=== PATIENT | female | born 1975 | race Caucasian/White ===

== ENCOUNTER 2017-07-15 13:37 | Emergency (ER) | payer BC ==
[2017-07-15] MEDS ORDERED: ONDANSETRON 4 MG/2 ML VIAL ONE (14:18)
[2017-07-15 14:39] LABS: Absolute Lymphocytes (CBC) 3.2 K/uL (0.7-4.9); Absolute Monocytes 0.7 K/uL (0.1-1.3); Absolute Neutrophil 7.1 K/uL (1.8-8.0); Basophils % 0.5 % (0-1.3); Eosinophils % 2.6 % (0-4.4); Hematocrit 39.3 % (36.0-45.0); Lymphocytes % 27.9 % (15.3-44.8); MCH 27.6 pg (27.0-35.0); MCV 83.6 fL (80-100); MPV 9.3 fL (7.6-11.3); Monocytes % 6.6 % (3.3-12.3); RBC Red Blood Cell Count 4.71 M/uL (3.86-4.86)
--- NOTE | 2017-07-15 14:42 | RAD REPORT ---
EXAM DESCRIPTION: CT - Head Brain Wo Cont - 07/15/2017 2:29 pm CLINICAL HISTORY: CVA COMPARISON: 11/20/2011, 09/19/2009 TECHNIQUE: All CT scans are performed using dose optimization technique as appropriate and may inclu de automated exposure control or mA/KV adjustment according to patient size. FINDINGS: No intracranial hemorrhage, hydrocephalus or extra-axial fluid collection.No areas of brai n edema or evidence of midline shift. The paranasal sinuses and mastoids are clear. The calvarium is intact. IMPRESSION: No acute intracranial abnormality.
[2017-07-15 14:43] LABS: Protime INR 1.02
[2017-07-15 14:47] LABS: Bicarbonate 26 mEq/L (21-31); Glucose Level 103 mg/dL (65-120); Potassium 3.6 mEq/L (3.6-5.0); Sodium Level 136 mEq/L (135-145)
[2017-07-15 14:48] LABS: BUN Blood Urea Nitrogen 10 mg/dL (6-20); Magnesium 1.7 mg/dL (1.8-2.5)
--- NOTE | 2017-07-15 15:11 | RAD REPORT ---
EXAM DESCRIPTION: MRI - Brain Wo Cont - 07/15/2017 3:00 pm CLINICAL HISTORY: CVA COMPARISON: 07/15/2017 CT head TECHNIQUE: Multi-sequence, multiplanar MR imaging of the brain was performed without contrast. FINDINGS: No intracranial hemorrhage, hydrocephalus or extra-axial fluid collections. No edema or sh ift of midline structures. No findings to suspect brain mass. DWI is negative for acute CVA. Midline structures are normally formed. Mastoid air cells and paranasal sinuses are clear. IMPRESSION: No acute or concerning intracranial abnormalities.
[2017-07-15] MEDS ORDERED: MAGNESIUM SULFATE 1 gm IVPB 1 GM/100 ML BAG IV ONE (15:21)
[2017-07-15 16:00] LABS: Urine Blood NEGATIVE (NEG); Urine Glucose NEGATIVE (NEG); Urine Protein NEGATIVE (NEG)
[2017-07-15 16:06] LABS: Urine Bacteria 20-50 /HPF (<20); Urine RBC NONE SEEN /HPF (NONE SEEN)
[2017-07-15 16:07] LABS: Urine Culture Reflex Order REFLEXED
--- NOTE | 2017-07-15 16:09 | EDPHYS ---
Physician Documentation [facility] Name: Rosalina Nielsen Age: 42 yrs Sex: Female : 1975 Arrival Date: 07/15/2017 Time: 13:38 Bed 19 Private MD: Blair Enriquez S ED Physician Joseph Nova HPI: 07/15 14:44 This 42 yrs old Female presents to ER via Ambulatory with complaints of rn Numbness Of Arm, Chest Tightness, Headache. 14:44 This 42 yrs old Female presents to ER via Ambulatory with complaints of rn Numbness Of Arm, headache. 14:44 The patient's problem is reported as paresthesias, in right upper extremity, in right rn lower extremity, weakness, in the right lower extremity. Onset: The symptoms/episode began/occurred this morning. The symptoms are alleviated by nothing. The symptoms are aggravated by nothing. Severity of symptoms: At their worst the symptoms were mild in the emergency department the symptoms are unchanged. The patient has experienced a previous episode. Reports mild headache, onset of numbness/tingling of RUE and right foot, onset at 0400, reports mild weakness to right leg. 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 . 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 - Social history:: Smoking status: Patient uses tobacco products, denies chronic smoking, but will smoke occasionally. - Family history:: not pertinent. - Hospitalizations: : No recent hospitalization is reported. ROS: 14:44 Constitutional: Negative for fever, chills, and weight loss, Eyes: Negative for injury, rn pain, redness, and discharge, Neck: Negative for injury, pain, and swelling, Cardiovascular: Negative for chest pain, palpitations, and edema, Respiratory: Negative for shortness of breath, cough, wheezing, and pleuritic chest pain, Abdomen/GI: Negative for abdominal pain, nausea, vomiting, diarrhea, and constipation, Back: Negative for injury and pain, MS/Extremity: Negative for injury and deformity, Skin: Negative for injury, rash, and discoloration, Neuro: Negative for seizure Exam: 14:44 Constitutional: This is a well developed, well nourished patient who is awake, alert, rn and in no acute distress. Head/Face: Normocephalic, atraumatic. Eyes: Pupils equal round and reactive to light, extra-ocular motions intact. Lids and lashes normal. Conjunctiva and sclera are non-icteric and not injected. Cornea within normal limits. Periorbital areas with no swelling, redness, or edema. Neck: Trachea midline, no thyromegaly or masses palpated, and no cervical lymphadenopathy. Supple, full range of motion without nuchal rigidity, or vertebral point tenderness. No Meningismus. Cardiovascular: Regular rate and rhythm with a normal S1 and S2. No gallops, murmurs, or rubs. Normal PMI, no JVD. No pulse deficits. Respiratory: Lungs have equal breath sounds bilaterally, clear to auscultation and percussion. No rales, rhonchi or wheezes noted. No increased work of breathing, no retractions or nasal flaring. Abdomen/GI: Soft, non-tender, with normal bowel sounds. No distension or tympany. No guarding or rebound. No evidence of tenderness throughout. MS/ Extremity: Pulses equal, no cyanosis. Neurovascular intact. Equal circumference. Neuro: Awake and alert, GCS 15, oriented to person, place, time, and situation. Cranial nerves II-XII grossly intact. Motor strength 5/5 in all extremities without drift, + very mild RLE weakness. decreased sensation RUE/RLE. Cerebellar exam normal. Normal gait. Vital Signs: 13:44 BP 146 / 97; Pulse 61; Resp 17; Temp 98.7(O); Pulse Ox 100% on R/A; Weight 89.81 kg tw2 (R); Height 5 ft. 1 in. (154.94 cm) (R); Pain 6/10; 14:25 BP 138 / 88; Pulse 62; Pulse Ox 99% on R/A; ch 15:16 BP 132 / 80; Pulse 70; Resp 16; Temp 98.5; Pulse Ox 100% on R/A; Pain 6/10; ch 16:22 BP 128 / 89; Pulse 65; Resp 14; Temp 97.8; Pulse Ox 99% on R/A; Pain 5/10; ch 13:44 Body Mass Index 37.41 (89.81 kg, 154.94 cm) tw2 MDM: 13:49 Patient medically screened. rn 14:00 ED course: Onset 0400 today.. rn 16:06 Differential diagnosis: CVA, TIA, metabolic disorder, complicated migraine. Data rn reviewed: vital signs, nurses notes, lab test result(s), EKG, radiologic studies, CT scan, MRI, and as a result, I will discharge patient. Counseling: I had a detailed discussion with the patient and/or guardian regarding: the historical points, exam findings, and any diagnostic results supporting the discharge/admit diagnosis, lab results, radiology results, the need for outpatient follow up, to return to the emergency department if symptoms worsen or persist or if there are any questions or concerns that arise at home. Response to treatment: the patient's symptoms have mildly improved after treatment, and as a result, I will discharge patient. Special discussion: I discussed with the patient/guardian in detail that at this point there is no indication for admission to the hospital. It is understood, however, that if the symptoms persist or worsen the patient needs to return immediately for re-evaluation. ED course: CT head and MRI brain negative for acute findings, most likely complicated migraine given her hx of complicated migraines and neurological problems NOS, will dc home to f/u with her neurologist Dr. alfaro. . 07/15 14:00 Order name: Magnesium; Complete Time: 15:07/15 14:00 Order name: Urine Microscopic Only rn 07/15 14:00 Order name: Basic Metabolic Panel; Complete Time: 15: rn 07/15 14:00 Order name: CBC with Diff; Complete Time: 15: rn 07/15 14:00 Order name: Protime (+inr); Complete Time: 15:17 rn 07/15 14:00 Order name: Ptt, Activated; Complete Time: 15:17 rn 07/15 14:00 Order name: CT Head Brain wo Cont; Complete Time: 15:17 rn 07/15 14:00 Order name: Troponin (emerg Dept Use Only); Complete Time: 15:17 rn 07/15 14:00 Order name: EKG; Complete Time: 14:01 rn 07/15 14:00 Order name: Brain Wo Cont MRI; Complete Time: 15:17 rn 07/15 15:41 Order name: Urine Dipstick--Ancillary (enter results) ag 07/15 15:41 Order name: Urine --Ancillary (enter results) 07/15 16:09 Order name: Urine Culture EDAR 07/15 14:00 Order name: Urine Test (obtain specimen); Complete Time: 15:14 rn 07/15 14:00 Order name: Cardiac monitoring; Complete Time: 15:15 rn 07/15 14:00 Order name: EKG - Nurse/Tech; Complete Time: 15:48 rn 07/15 14:00 Order name: IV Saline Lock; Complete Time: 14:22 rn 07/15 14:00 Order name: Labs collected and sent; Complete Time: 15:15 rn 07/15 14:00 Order name: NPO; Complete Time: 15:15 rn 07/15 14:00 Order name: O2 Per Protocol; Complete Time: 15:15 rn 07/15 14:00 Order name: O2 Sat Monitoring; Complete Time: 15:15 rn 07/15 14:00 Order name: Urine Dipstick-Ancillary (obtain specimen); Complete Time: 15:15 rn Administered Medications: 15:20 Drug: Magnesium Sulfate 1 grams Route: IVPB; Infused Over: 1 hrs; Site: left forearm; 15:48 Follow up: IV Status: Completed infusion Disposition: 07/15/17 16:08 Discharged to Home. Impression: Paresthesia of skin, Migraine, unspecified. - Condition is Stable. - Discharge Instructions: Paresthesia. - Work release form, Medication Reconciliation Form, Thank You Letter, Antibiotic Education, Prescription Opioid Use form. - Follow up: Chris Alfaro MD; When: As needed; Reason: Recheck today's complaints, Re-evaluation by your physician. - Problem is new. - Symptoms have improved. Signatures: Dispatcher [employer] EDZenaida Jean-Baptiste RN RN Marissa Nixon RN RN Joseph Nova MD MD rn Wise, Tara, RN RN tw2
--- NOTE | 2017-07-15 16:09 | ER ---
Nurse's Notes [facility] Name: Rosalina Nielsen Age: 42 yrs Sex: Female : 1975 Arrival Date: 07/15/2017 Time: 13:38 Bed 19 Private MD: Blair Enriquez S Diagnosis: Paresthesia of skin;Migraine, unspecified Presentation: 07/15 13:43 Presenting complaint: Patient states: "numbness in my right arm since 4 am this tw2 morning, and it feels like it is going into my chest, and i have been having some tightness in my chest and right foot feels like a tingling sensation". Transition of care: patient was not received from another setting of care. Onset of symptoms was July 15, 2017. Care prior to arrival: None. 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 - Social history:: Smoking status: Patient uses tobacco products, denies chronic smoking, but will smoke occasionally. - Family history:: not pertinent. - Hospitalizations: : No recent hospitalization is reported. Screenin:25 Abuse screen: Denies threats or abuse. Denies injuries from another. Nutritional ch screening: No deficits noted. Tuberculosis screening: No symptoms or risk factors identified. Fall Risk None identified. Assessment: 14:22 General: Appears in no apparent distress. uncomfortable, Behavior is calm, cooperative, ch appropriate for age. Pain: Complains of pain in head Pain does not radiate. Pain currently is 4 out of 10 on a pain scale. Pain began gradually. Neuro: Level of Consciousness is awake, alert, obeys commands, Oriented to person, place, time, situation, Founder And Ceo are equal bilaterally Moves all extremities. Full function Gait is steady, Speech is normal, Facial symmetry appears normal, Facial symmetry: tongue is midline, Pupils are PERRLA, Reports headache numbness paresthesias in right arm, right bess, anterior aspect of right ankle and dorsum of right foot. 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 Respiratory: Airway is patent Respiratory effort is even, unlabored, Breath sounds are clear bilaterally. GI: Reports nausea. : No signs and/or symptoms were reported regarding the genitourinary system. Derm: Skin is intact, Skin is pink, warm \\T\\ dry. 15:16 Reassessment: Patient appears in no apparent distress at this time. Patient and/or ch family updated on plan of care and expected duration. Pain level reassessed. Patient is alert, oriented x 3, equal unlabored respirations, skin warm/dry/pink. 16:22 Reassessment: Patient appears in no apparent distress at this time. Patient and/or ch family updated on plan of care and expected duration. Pain level reassessed. Patient is alert, oriented x 3, equal unlabored respirations, skin warm/dry/pink. Patient states feeling better. Patient states symptoms have improved. Vital Signs: 13:44 BP 146 / 97; Pulse 61; Resp 17; Temp 98.7(O); Pulse Ox 100% on R/A; Weight 89.81 kg tw2 (R); Height 5 ft. 1 in. (154.94 cm) (R); Pain 6/10; 14:25 BP 138 / 88; Pulse 62; Pulse Ox 99% on R/A; ch 15:16 BP 132 / 80; Pulse 70; Resp 16; Temp 98.5; Pulse Ox 100% on R/A; Pain 6/10; ch 16:22 BP 128 / 89; Pulse 65; Resp 14; Temp 97.8; Pulse Ox 99% on R/A; Pain 5/10; ch 13:44 Body Mass Index 37.41 (89.81 kg, 154.94 cm) tw2 ED Course: 13:38 Patient arrived in ED. as 13:39 Blair Enriquez MD is Private Physician. as 13:44 Triage completed. tw2 13:45 Arm band placed on. tw2 13:47 Joseph Nova MD is Attending Physician. rn 14:08 Zenaida Cook, RN is Primary Nurse. ch 14:25 No apparent distress. Resting quietly. ch 14:25 Patient has correct armband on for positive identification. Bed in low position. Call light in reach. Side rails up X 1. Pulse ox on. NIBP on. 14:25 No provider procedures requiring assistance completed. Inserted saline lock: 22 gauge ch in left forearm, using aseptic technique. Blood collected. Missed attempt(s): 20 gauge in right antecubital area. Bleeding controlled, band aid applied, catheter tip intact. Patient maintains SpO2 saturation greater than 95% on room air. 14:29 CT Head Brain wo Cont In Process Unspecified. EDMS 14:42 Patient moved to MRI via wheelchair. ka 14:44 Brain Wo Cont MRI In Process Unspecified. EDMS 14:59 MRI completed. Patient tolerated poorly. Patient moved back from MRI. ka 15:15 Urine collected: clean catch specimen, cloudy. tm3 15:16 Warm blanket given. ch 15:16 Urine micro sent to lab. tm3 15:28 EKG done, by photovoltaic technician. reviewed by Joseph Nova MD. [facility] 16:08 Chris Perez MD is Referral Physician. rn 16:22 IV discontinued, intact, bleeding controlled, No redness/swelling at site. Pressure ch dressing applied. Administered Medications: 15:20 Drug: Magnesium Sulfate 1 grams Route: IVPB; Infused Over: 1 hrs; Site: left forearm; iw 15:48 Follow up: IV Status: Completed infusion Outcome: 16:08 Discharge ordered by MD. rn 16:22 Discharged to home ambulatory, with family. 16:22 Condition: stable 16:22 Discharge instructions given to patient, Instructed on discharge instructions, follow up and referral plans. Demonstrated understanding of instructions, follow-up care. 16:23 Patient left the ED. Signatures: Dispatcher [employer] EDAL Zenaida Cook, RN Kt Ojeda ch tm3 Margarita Irvin Irene, RN RN iw Nieto, Roman, MD MD rn gonzales, Amanda, turkey egg gatherer EKG Tat1 Maria E Gonzalez Tara, RN RN tw2
[2017-07-15 16:37] VITALS: BP 128/89; TEMP 97.8; O2SAT 99
--- NOTE | 2017-07-16 08:00 | EKG ---
Test Date: 2017-07-15 Test Time: 15:20:51 Welfare Administrator: CLAY MEASUREMENT RESULTS: Intervals: Rate: 64 AK: 144 QRSD: 80 QT: 408 QTc: 420 Sterling: P: 35 AK: 144 QRS: 14 T: 28 INTERPRETIVE STATEMENTS: Normal sinus rhythm Normal ECG No previous ECG available for comparison Electronically Signed On 07-16-17 07:59:15 CDT by Pieter Bruner
== END 2017-07-15 16:23 | disposition home or self-care (01) ==
LOC: ER 13:37
DX: G43.909 Migraine, unspecified, not intractable, without status migrainosus (principal); G40.909 Epilepsy, unspecified, not intractable, without status epilepticus; Z88.0 Allergy status to penicillin; Z88.6 Allergy status to analgesic agent
CPT/HCPCS: 36415; 70450; 70551; 80048; 81003; 81015; 81025; 83735; 84484; 85025; 85610; 85730; 87086; 87088; 93005; 96365; 99285; J2405; J3475

== ENCOUNTER 2020-09-27 17:45 | Observation (INO) | payer BC ==
--- OUTSIDE RECORDS SUMMARY | 2020-09-27 18:08 | XMS REPORT | Continuity of Care Document ---
:1975 Author Organization [facility] t Address [address] [place] [address] Care Team Providers Name Role Phone Provider, Urgent Care Attending Clinician Unavailable Forest Allred DO Attending Clinician Elmer MURO Attending Clinician Doctor Unassigned, Name Attending Clinician Unavailable Problems Condition Condition Condition Status Onset Resolution Last Treating Co mments Source Name Details Category Date Date Treatment Clinician Date Perforatio Perforatio Problem Active 2018-04 M gail n of n of 04-25 da tympanic Tympanic 00:00: Medica l membrane Membrane 00 Group Acute Acute Problem Active 2018-04 [facility] maxillary Maxillary 04-25 da sinusitis Sinusitis 00:00: Medi julio cesar 00 Group Acute Acute Problem Active 2018-04 [place] serous Serous 04-25 da otitis Otitis 00:00: Medical media of Media of 00 Group right ear Right Ear Pharyngiti Pharyngiti Problem Active [facility] Fever Fever Problem Active [facility] Allergies, Adverse Reactions, Alerts Allergy Allergy Status Severity Reaction(s) Onset Inactive Treating Comm ents Source Name Type Date Date Clinician Aspirin Allergy Active Other [facility] to da [facility]stanc [facility] Coconut Allergy Active Moderate Facial [facility] to to severe swelling [facility] Social History Smoking Status Start Date Stop Date Source Current Some Day Smoker [facility] Medications Ordered Filled Start Stop Current Ordering Indication Dosage Frequency Signature Comments Components Source Medication Medication Date Date Medication? Clinician (SIG) Name Name Augmentin Augmentin No 1 Q12H Augmentin [facility] 875 mg-125 875 mg-125 875 mg-125 da mg tablet mg tablet mg tablet Medical Take 1 Take 1 Take 1 Group tablet tablet tablet every 12 every 12 every 12 hours by hours by hours by oral route oral route oral route for 10 for 10 for 10 days. days. days. Cipro HC Cipro HC No Cipro HC [facility] 0.2 %-1 % 0.2 %-1 % 0.2 %-1 % da ear ear ear Medical drops,suspe drops,suspe drops,susp Group nsion nsion ension Ciprodex Ciprodex No Ciprodex [facility] 0.3 %-0.1 % 0.3 %-0.1 % 0.3 %-0.1 da ear ear % ear Medical drops,suspe drops,suspe drops,susp Group nsion nsion ension INSTILL 4 INSTILL 4 INSTILL 4 DROPS INTO DROPS INTO DROPS INTO AFFECTED AFFECTED AFFECTED EAR(S) BY EAR(S) BY EAR(S) BY OTIC ROUTE OTIC ROUTE OTIC ROUTE 2 TIMES PER 2 TIMES PER 2 TIMES DAY FOR 7 DAY FOR 7 PER DAY DAYS DAYS FOR 7 DAYS Nexium Nexium No Nexium [facility] Vital Signs Vital Name Observation Time Observation Value Comments Source BP Diastolic 2019-02-23 00:00:00 77 mm[Hg] [facility] Height 2019-02-23 00:00:00 61 [in_i] [facility] BMI (Body Mass 2019-02-23 00:00:00 40.6 kg/m2 [facility] replacement orderer Medical Index) Group BP Systolic 2019-02-23 00:00:00 113 mm[Hg] [facility] Body Weight 2019-02-23 00:00:00 3442 [oz_av] [facility] Procedures This patient has no known procedures. Plan of Care Planned Activity Planned Date Details Comments Source Instructions [facility] Encounters Start End Encounter Admission Attending Care Care Encounter Source Date/Time Date/Time Type Type Clinicians Facility Department ID 2020-07-21 2020-07-21 Urgent Provider, [facility] [id number] 14:26:31 14:46:31 [facility] [id number] [facility] [id number] Iain [id number] [address]al [address] 2020-06-22 2020-06-22 Patient Chalino [facility] [id number] 00:00:00 00:00:00 Outreach [place] [facility] [id number] [facility] [id number] PAVYRIS [id number] 2020-05-03 2020-05-03 Hospital Taisha Payne [facility] [id number] 13:00:00 23:59:00 Encounter [place] [id number] [place] [id number] [place] [id number] 2020-04-13 2020-04-13 Orders Doctor RACHAEL [id number] 00:00:00 00:00:00 Only Unassigned, MATILDE [id number] [place] [facility] [id number] 2019-02-23 2019-02-23 Mary Ann [facility] [place] - [id number] gail 00:00:00 00:00:00 Ama Barajas, Medical Medical SCIENTIFIC SYSTEMS ANALYST: [address], [place] [address] , Ph. Results This patient has no known results.
[2020-09-27] MEDS ORDERED: Ringers Lactate 1,000 ML IV ONE (18:30)
[2020-09-27] MEDS ORDERED: BUPIVACAINE 0.5% PF 10 ML VIAL ONE (18:44)
[2020-09-27] MEDS ORDERED: SUCCINYLCHOLINE 20 MG/ML (10 ML) IV ONE (18:48)
[2020-09-27] MEDS ORDERED: propofoL 200 MG/20 ML VIAL IV ONE (18:50)
[2020-09-27] MEDS ORDERED: ROCURONIUM 50 MG/5 ML VIAL IV ONE (18:50)
[2020-09-27] MEDS ORDERED: FENTANYL CITR 250 MCG/5 ML ONE (18:50)
[2020-09-27] MEDS ORDERED: MIDAZOLAM HCL 2 MG/2 ML INJ ONE (18:51)
[2020-09-27] MEDS ORDERED: ONDANSETRON 4 MG/2 ML VIAL ONE ×2 (19:24→20:15)
[2020-09-27] MEDS ORDERED: dexAMETHasone 10 MG/ML VIAL ONE (19:24)
--- NOTE | 2020-09-27 19:35 | P.OP ---
Recovery Coach: NONE,NONE Preoperative diagnosis: Acute Appendicitis Postoperative diagnosis: same, Right Para Pelvic Mass Primary procedure: Lap Appy and excision Right Para Pelvic Mass Anesthesia: General Estimated blood loss: Min Specimen: Appy and Para pelvic Mass Findings: as above Complications: None Transferred to: Recovery Room Condition: Good
[2020-09-27] MEDS ORDERED: NEOSTIGMINE 1 MG/ML -5 ML ONE (19:45)
[2020-09-27] MEDS ORDERED: GLYCOPYRROLATE 0.2 MG/ML SYR ONE (19:46)
[2020-09-27] MEDS ORDERED: HYDROMORPHONE HCL 1 MG/ML INJ IV PRN (19:59)
[2020-09-27] MEDS ORDERED: HYDROCODONE/APAP 7.5/325 MG TAB PO PRN (19:59)
[2020-09-27] MEDS ORDERED: ONDANSETRON 4 MG/2 ML VIAL IV PRN (19:59)
[2020-09-27 20:38] VITALS: BMI 38.7
[2020-09-27] MEDS: NA CHLORIDE 0.9% 1,000 ML IV SCH (20:44)
--- NOTE | 2020-09-27 22:23 | PREOPHP ---
Date of Admission: 09/27/2020 Chief Complaint: Abdominal pain. History Of Present Illness: The patient is a 45-year-old female who comes in with 24-hour history of right lower quadrant abdominal pain associated with nausea, vomiting, and diarrhea. No constipation . No blood in her stool. No dysuria or hematuria. No sore throat, runny nose, cough, headaches, or dizziness. No chest pain. No fever or chills. Review of Systems: Otherwise unremarkable. Past Medical History: Negative. Past Surgical History: Laparoscopic hysterectomy and bilateral salpingo oophorectomy. Allergies: INCLUDE NONE. Social History: The patient smokes and drinks occasionally. Has been counseled. Family History: Noncontributory. Physical Examination: Vital Signs: Stable. She is afebrile. General: She is awake, alert, and oriented x3. Head and Neck: Cranial nerves 2 through 12 are grossly within normal limits. No neck masses. No JV D. Throat clear. Neck: Supple. Chest: Clear. Heart: S1 and S2. Abdomen: Soft, nondistended. Positive bowel sounds. Positive right lower quadrant tenderness with rebound. No rigidity or guarding. Extremities: Adequately perfused. Nontender. Neuro: Nonfocal. Laboratory Data: White count is 13.5 with a left shift. CT of the abdomen and pelvis shows 9 mm flu id filled consistent with early acute appendicitis. Assessment: Acute appendicitis. Plan: Admit, n.p.o., IV fluid, IV antibiotic. To the OR for laparoscopic appendectomy, possible ope n. The patient understands the risks, benefits, and alternatives and agrees to procedure. /MODL Voice ID: [id number]
[2020-09-27] MEDS ORDERED: CEFOXITIN/SWI 1gm 1 GM/10 ML SYR ONE (23:52)
--- NOTE | 2020-09-27 23:56 | OP ---
Date of Procedure: 09/27/2020 Surgeon: Yoni Perez MD Medical Staff Credentialing Coordinator: None. Preoperative Diagnosis: Acute appendicitis. Postoperative Diagnosis: Acute appendicitis with mass on the right parapelvic region. Procedure Performed: Laparoscopic appendectomy and laparoscopic excision of right parapelvic mass. Estimated Blood Loss: Minimal. Specimen: Appendix and right parapelvic mass. Findings: Acute appendicitis and right parapelvic mass most likely with remnant tissue of ovary left from the hysterectomy. Anesthesia: General. Complications: None. Disposition: The patient tolerated the procedure in stable condition and taken to Recovery in good g eneral condition. Procedure In Detail: The patient was brought to the OR and placed in supine position. General anest hesia was begun. The patient was prepped and draped in usual sterile fashion. Marcaine 0.5% was inf iltrated locally. A 15-blade was used to make a 1 cm supraumbilical midline incision. Subcutaneous tissue was divided. Fascia was identified and divided. #1 Vicryl stay suture was placed. Peritonea l cavity was entered with blunt dissection and then 12 mm trocar was placed into the peritoneal cavit y under direct vision. Pneumoperitoneum was established and then two 5 mm trocars were placed, 1 in the suprapubic region, 1 in the left lower quadrant. Laparoscopy revealed elongated appendix dilated with injected blood vessel and inflammation consistent with acute appendicitis and also a right bubba pelvic cyst which, the appendix was attached to and to the peritoneal surface. Subsequently, Endo-GI A stapling device was used to divide the mesoappendix and base of the appendix and then the mass that was present was excised as well with LigaSure. Subsequently both the structures were removed via En doCatch bag. Right lower quadrant was irrigated. Effluent was clear. No evidence of bleeding or sarah wel injury appreciated. Subsequently, all trocars were removed under direct vision. Stay sutures we re tied to each other to reapproximate the fascial defect. Subcutaneous wounds were irrigated. Blee ding was controlled with cautery. Then 3-0 chromic was used to approximate subcutaneous tissue and s taples were used to close the skin. Sterile dressing was applied. Patient was awakened and taken to Recovery in good general condition. /MODL Voice ID: [id number] Report ID: [id number]
[2020-09-28] MEDS ORDERED: CEFOXITIN SODIUM 1 GM/VIAL IVPB SCH
[2020-09-28] MEDS: CEFOXITIN/SWI 1gm 1 GM/10 ML SYR IV SCH ×3 (00:09→12:55)
[2020-09-28] MEDS ORDERED: CEFOXITIN SODIUM 1 GM/VIAL ONE (05:03)
[2020-09-28] MEDS: NA CHLORIDE 0.9% 1,000 ML IV SCH (05:04)
[2020-09-28 06:11] LABS: Absolute Lymphocytes (CBC) 1.1 K/uL (0.7-4.9); Basophils % 0.5 % (0-1.3); Hematocrit 42.3 % (36.0-45.0); Lymphocytes % 9.8 % (15.3-44.8); RBC Red Blood Cell Count 4.94 M/uL (3.86-4.86)
[2020-09-28 07:34] LABS: Blood Morphology Comment NOT SEEN (NOT SEEN); Platelet Estimate ADEQ; White Blood Cell Scan OK (OK)
[2020-09-28 09:51] VITALS: O2SAT 93
[2020-09-28 13:52] VITALS: BP 111/61; TEMP 98.3
--- NOTE | 2020-09-28 16:12 | DS ---
Date of Discharge: 09/28/2020 Admitting Diagnosis: Acute appendicitis. Discharge Diagnosis: Acute appendicitis with right parapelvic mass. Procedure Performed: Lap appy and excision of right peripelvic mass. Hospital Course: The patient is a 45-year-old female, underwent the aforementioned procedure. Posto peratively, she is tolerating diet. She had some nausea this morning, so we will watch her at lunch. If she tolerates, then she can be discharged to home. She is ambulating, pain controlled on p.o. p ain medications, afebrile. Disposition: Home. Condition: Stable. Discharge Instructions: Resume home medications and diet. Activity as tolerated. Remove outer dres sing in a.m. Shower. Keep wound clean and dry. Follow up in my office in 1 week. Call for appoint ment. Tylenol No.3 one tablet p.o. q.4 p.r.n. pain, Augmentin 875 mg p.o. q.12. /MODL Voice ID: [id number] Report ID: [id number]
== END 2020-09-28 13:56 | disposition home or self-care (01) ==
LOC: 2ND 18:05
PROVIDERS: ADMIT Surgery; ATTEND Surgery
PROC: 0UB04ZZ Excision of Right Ovary, Percutaneous Endoscopic Approach (ICD-10-PCS; 2020-09-27)
PROC: 0DTJ4ZZ Resection of Appendix, Percutaneous Endoscopic Approach (ICD-10-PCS; principal; 2020-09-27 18:30)
DX: K35.80 Unspecified acute appendicitis (principal); N83.11 Corpus luteum cyst of right ovary; N94.89 Other specified conditions associated with female genital organs and menstrual cycle; F17.200 Nicotine dependence, unspecified, uncomplicated
CPT/HCPCS: 85025; 36415; 88304; 88305; 94010; 44970; 58662; J2704; J0330; J2250; J3010; J1100; J1170; J2710; J7120; J7030 ×2; J0694; J2405 ×3; G0379; G0378 ×2